=== PATIENT | male | born 1970 | race Caucasian/White ===

== ENCOUNTER 2019-04-28 17:05 | Inpatient (IN) ==
--- NOTE | 2019-04-28 17:20 | EKG Report ---
Test Performed on : 04/28/2019 5:06:36 PM Test Reason : CP/SOB Blood Pressure : / mmHG Vent. Rate : 103 BPM Atrial Rate : 103 BPM P-R Int : 130 ms QRS Dur : 086 ms QT Int : 334 ms P-R-T Axes : 067 -45 078 degrees QTc Int : 437 ms Sinus tachycardia. Low voltage QRS Left anterior fascicular block Septal infarct (cited on or before 21-JUL-2007) Abnormal ECG When compared with ECG of 21-JUL-2007 21:56, Left anterior fascicular block is now present Nonspecific T wave abnormality no longer evident in Lateral leads Unconfirmed Result
--- NOTE | 2019-04-28 17:32 | Diag Imaging Result Doc PS360 ---
EXAM: CHEST-1 VIEW 04/28/2019 HISTORY: POSSIBLE SEPSIS TECHNIQUE: AP portable upright chest at 1725 COMMENT: Considering differences in technique there has been no significant change since 06/12/2010. There is a prominent epicardial fat pad on the left. IMPRESSION: No evidence of acute disease. Electronically signed by Librado Snell 04/28/2019 5:30 PM
--- NOTE | 2019-04-28 18:06 | PROVIDER DOCUMENTATION ---
HPI-Respiratory General - General Chief Complaint: SEPSIS ALERT - D Stated Complaint: CP,SOB,EDEMA,COUGHING Time Seen by Provider: 04/28/19 17:41 Allergies/Adverse Reactions: Patient Allergies Allergy/AdvReac Type Severity Reaction Status Date / Time Penicillins Allergy Unknown Verified 04/28/19 17:57 Home Medications: Home Medication List Medication Instructions Recorded Confirmed Last Taken Type ATORVAstatin [Lipitor] 40 mg PO DAILY 10/09/14 04/28/19 10/08/14 History Lisinopril/Hydrochlorothiazide 1 tab PO DAILY 10/09/14 04/28/19 10/08/14 History [Lisinopril-Hctz 20-25 mg Tab] Omeprazole [Prilosec] 40 mg PO DAILY 10/09/14 04/28/19 10/08/14 History Furosemide 1 tab PO DAILY 04/28/19 04/28/19 Unknown History Meloxicam 1 tab PO BID 04/28/19 04/28/19 Unknown History Potassium Chloride 1 tab PO DAILY 04/28/19 04/28/19 Unknown History - History of Present Illness-Resp Nature of Presenting Problem: PATIENT REPORTS SOB WITH PRODUCTIVE COUGH X2 WEEKS. ALSO C/O STERNAL CHEST PAIN X1 WEEK , PATIENT WITH HISTORY OF COPD AND SMOKER, Quality of Pain: reports: sharp Severity in ED: reports: moderate Onset/Duration: reports: gradual Timing: reports: still present Exposure: reports: smoke exposure Cough Quality/Degree: reports: moderate, productive cough Episode Frequency: chronic episodes Current Respiratory Medication Therapy: Initiated A/A nebulizer Modifying Factors: improves with: exertion, coughing Associated Symptoms: reports: cough, hurts to breathe, short of breath Similar Symptoms Previously?: Yes Review of Systems - Adult - REVIEW OF SYSTEMS - ADULT Constitutional: reports: ramsey. denies: fever Eyes: reports: no symptoms reported Ears, Nose, Mouth & Throat: reports: no symptoms reported Cardiovascular: reports: see HPI Respiratory: reports: see HPI, cough, dyspnea on exertion, shortness of breath Gastrointestinal: reports: no symptoms reported Genitourinary: reports: no symptoms reported Musculoskeletal: reports: no symptoms reported Integumentary: reports: no symptoms reported Neurological: reports: no symptoms reported Psychiatric: reports: no symptoms reported Endocrine: reports: no symptoms reported Hematologic/Lymphatic: reports: no symptoms reported Allergic/Immunologic: reports: no symptoms reported Past History - Adult - PAST MEDICAL HISTORY-ADULT Review of Records: reports: Nursing Assessment Review, Medications Reviewed, Social history reviewed & non-contributory. Major Childhood Illnesses: reports: denies history Cardiovascular: reports: HTN Respiratory: reports: denies history Gastrointestinal: reports: denies history Obstetrical/Gynecological: reports: denies history Genitourinary: reports: denies history Musculoskeletal: reports: denies history Neurological: reports: denies history Endocrine/Immune: reports: denies history Other Conditions: reports: denies history - FAMILY HISTORY Family History: reviewed, not pertinent Physical Exam-General - PHYSICAL EXAM-ADULT Initial Vital Signs Reviewed: Yes - CONSTITUTIONAL General Appearance: alert, no apparent distress - EYES Eyes: PERRL/EOMI, pink conjunctivae - HEAD, EARS, NOSE, MOUTH & THROAT HENMT: normocephalic/atraumatic, moist mucous membranes - NECK Neck: non-tender, supple - RESPIRATORY Respiratory: decreased breath sounds, rhonchi - CARDIOVASCULAR Cardiovascular: regular rate, rhythm - GASTROINTESTINAL (ABDOMEN) Abdominal Exam: non tender, soft - LYMPHATIC Lymphatic: no adenopathy - MUSCULOSKELETAL Back Exam: no CVA tenderness, no vertebral tenderness Extremity: pedal edema, swelling - SKIN Integumentary: normal color, warm/dry - NEUROLOGIC Neurologic: grossly normal, no motor/sensory deficits Progress - PLAN OF CARE/RESULTS Progress/Plan/Lab Results: Vital Signs - 8 hr 04/28/19 17:06 04/28/19 17:21 04/28/19 17:23 Temperature 99.3 F Pulse Rate 102 H 93 H Respiratory Rate 24 18 Blood Pressure 128/75 129/74 O2 Sat by Pulse Oximetry 80 L 84 L 92 L 04/28/19 17:30 04/28/19 17:48 04/28/19 18:00 Temperature Pulse Rate 85 93 H 89 Respiratory Rate 16 19 15 Blood Pressure 147/74 O2 Sat by Pulse Oximetry 94 L 91 L 92 L 04/28/19 18:01 Temperature Pulse Rate 88 Respiratory Rate 23 Blood Pressure 140/92 O2 Sat by Pulse Oximetry 88 L Laboratory Results - last 24 hr 04/28/19 04/28/19 04/28/19 17:40 17:40 17:40 WBC 8.15 RBC 4.26 L Hgb 13.7 L Hct 42.2 MCV 99.1 H MCH 32.2 H MCHC 32.5 L RDW Std Deviation 13.6 Plt Count 178 MPV 9.7 Immature Gran % (Auto) 0.2 Neut % (Auto) 67.0 Lymph % (Auto) 24.9 Alpine % (Auto) 5.4 Eos % (Auto) 2.3 Baso % (Auto) 0.2 Immature Gran # (Auto) 0.02 Neut # (Auto) 5.45 Lymph # (Auto) 2.03 Alpine # (Auto) 0.44 Eos # (Auto) 0.19 Baso # (Auto) 0.02 PT INR PTT (Actin FS) Specimen Type Sample Site pH pCO2 pO2 HCO3 Base Excess Oxyhemoglobin ABG O2 Sat (Calculated) ABG O2 Saturation ABG Carboxyhemoglobin ABG Methemoglobin Nadeem Test A-a O2 Difference Total Hemoglobin Lactate Liter Flow Blood Gas Modality FiO2 % Sodium 145 Potassium 4.5 Chloride 101 Carbon Dioxide 35 Anion Gap 9 BUN 21 Creatinine 1.1 Estimated GFR/1.73 m2 > 60 BUN/Creatinine Ratio 19 Glucose 163 H Calculated Osmolality 295 Calcium 7.9 L Total Bilirubin 0.16 L AST 14 ALT 14 Alkaline Phosphatase 103 Creatine Kinase 77 Troponin T Total Protein 6.2 L Albumin 3.8 Globulin 2.4 Albumin/Globulin Ratio 1.6 Plasma Lactate 1.9 04/28/19 04/28/19 04/28/19 17:40 17:40 18:25 WBC RBC Hgb Hct MCV MCH MCHC RDW Std Deviation Plt Count MPV Immature Gran % (Auto) Neut % (Auto) Lymph % (Auto) Alpine % (Auto) Eos % (Auto) Baso % (Auto) Immature Gran # (Auto) Neut # (Auto) Lymph # (Auto) Alpine # (Auto) Eos # (Auto) Baso # (Auto) PT 13.1 INR 0.98 PTT (Actin FS) 26.5 Specimen Type ARTERIAL Sample Site R BRACHIAL pH 7.37 pCO2 73 H* pO2 66 HCO3 35.0 H Base Excess 13.2 H Oxyhemoglobin 88.7 L* ABG O2 Sat (Calculated) 17.8 ABG O2 Saturation 95.0 ABG Carboxyhemoglobin 5.60 H* ABG Methemoglobin 1.0 Nadeem Test NO A-a O2 Difference 99.0 Total Hemoglobin 14.3 Lactate 1.00 Liter Flow 4.0 Blood Gas Modality CANNULA FiO2 % 36.0 Sodium Potassium Chloride Carbon Dioxide Anion Gap BUN Creatinine Estimated GFR/1.73 m2 BUN/Creatinine Ratio Glucose Calculated Osmolality Calcium Total Bilirubin AST ALT Alkaline Phosphatase Creatine Kinase Troponin T < 0.010 Total Protein Albumin Globulin Albumin/Globulin Ratio Plasma Lactate Orders Category Date Time Status Cardiac Monitoring DIRECTED Care 04/28/19 17:17 Active IV Insertion ORDERED Care 04/28/19 17:17 Active Notify MD of + Sepsis Screen NOW Care 04/28/19 17:17 Active Notify Physician As Ordered Care 04/28/19 17:17 Active CHEST-1 VIEW [RAD] Stat Exams 04/28/19 17:17 Completed ABG [RESP] Routine Lab 04/28/19 18:25 Completed BLOOD CULTURE [BLDCUL] Stat Lab 04/28/19 17:47 Results BNP [PRO B-NATRIURETIC PEPTIDE] Stat Lab 04/28/19 18:56 Ordered CBC WITH DIFF [HEME] Stat Lab 04/28/19 17:40 Completed CK PROFILE [SP CHEM] Stat Lab 04/28/19 17:40 Completed COMPREHENSIVE METABOLIC PANEL [CHEM] Stat Lab 04/28/19 17:40 Completed LACTATE, PLASMA [CHEM] Lab 04/28/19 17:40 Completed LACTATE, PLASMA [CHEM] Lab 04/28/19 20:30 Uncollected LACTATE, PLASMA [CHEM] Lab 04/28/19 23:30 Uncollected PROTIME WITH INR [COAG] Stat Lab 04/28/19 17:40 Completed PTT [COAG] Stat Lab 04/28/19 17:40 Completed TROPONIN T Stat Lab 04/28/19 17:40 Completed URINALYSIS W/POSS RFLX CULT [URINALYSIS] Stat Lab 04/28/19 17:17 Uncollected Albuterol 2.5MG/Ipratrop 0.5MG [Duoneb (A & A)] Med 04/28/19 18:43 Discontinued 3 ml INH NOW ONE Budesonide [Pulmicort] Med 04/28/19 18:43 Discontinued 0.5 mg INH NOW ONE CefTRIAXONE [Rocephin] 1 gm Med 04/28/19 18:43 Active 0.9% Sodium Chloride Inj [Ns] 50 ml IV NOW Furosemide [Lasix] Med 04/28/19 18:42 Discontinued 80 mg IV NOW ONE Methylprednisolone Sod Succ [Solu-Medrol] Med 04/28/19 18:44 Discontinued 125 mg IV NOW ONE Aerosol Treatments Routine Oth 04/28/19 18:43 Active Aerosol Treatments Routine Oth 04/28/19 18:43 Active Aerosol Treatments Stat Oth 04/28/19 18:43 Active Aerosol Treatments Stat Oth 04/28/19 18:43 Active Oxygen Device Stat Oth 04/28/19 17:17 Completed EKG [EKG] Stat Ther 04/28/19 17:17 Draft Result Diagrams: 04/28/19 17:40 04/28/19 17:40 - CONSULTS/PCP/HOSPITALIST Notification #1 *Consult/PCP/Hospitalist*: D/w Dr Haynes Time Discussed: 20:36 Consult Disposition: Will see in ED, Admit - CHANGE OF SHIFT REPORT (ED Provider) 1 Report Given and Care Transferred to:: DR ROMERO Time of Transfer: 19:00 Items Pending: Labs, Other (CALL HOSPITALIST FOR ADMISSION) Departure - Departure Date of Disposition Decision: 04/28/19 Time of Disposition Decision: 20:39 DIAGNOSIS: Hypoxia, COPD with exacerbation Dyspnea Qualifiers: Dyspnea type: unspecified Qualified Code(s): R06.00 - Dyspnea, unspecified Disposition: ADMITTED INPATIENT 09 Certified Medical Emergency: Emergent Condition: Stable Referrals and Follow-Ups: Garfield Oden [Primary Care Provider] - - Critical Care Note This patient required my direct & personal management of CC.: No Attestation - Physician/ ENRICO Attestation Patient care was provided by Advanced Practice Provider:: No The physician spent face to face time with patient:: Yes Advanced Practice Provider documentation review:: Supervising physician onsite and consulted in the evaluation and care of this patient. The physician did have a face to face encounter with the patient.
[2019-04-28 18:10] LABS: BASO# 0.02 X1000 (0.0-0.2); BASO% 0.2 % (0.0-0.8); EOS# 0.19 X1000 (0.0-0.7); EOS% 2.3 % (0.0-10.0); HEMATOCRIT 42.2 % (42.0-52.0); HEMOGLOBIN 13.7 g/dL (14.0-18.0); IMM GRAN# 0.02 X1000 (0.0-0.04); IMM GRAN% 0.2 % (0.0-0.5); LYMPH# 2.03 X1000 (1.2-3.4); LYMPH% 24.9 % (20.5-51.1); MCH 32.2 PG (27-31); MCHC 32.5 g/dL (33-37); MCV 99.1 FL (81-99); MONO# 0.44 X1000 (0.11-0.59); MONO% 5.4 % (1.7-9.3); MPV 9.7 FL (7.4-10.4); NEUT# 5.45 X1000 (1.4-6.5); PLT 178 X1000 (130-400); RBC 4.26 XMIL (4.7-6.1); RDW 13.6 % (11.5-14.5); WBC 8.15 X1000 (4.8-10.8)
[2019-04-28 18:17] LABS: INR 0.98; PROTIME 13.1 Seconds (11.0-16.0); PTT 26.5 Seconds (22.3-41.8)
[2019-04-28 18:30] LABS: ALLEN TEST NO; BE 13.2 mmoll (-3.0-3.0); BLOOD TYPE ARTERIAL; O2(CT) 17.8 mL/dL (15.0-23.0); PO2(98.6) 66 mmHg (60-100); SAMPLE BLOOD; THB 14.3 g/dL (11.5-17.4); pH(98.6) 7.37 (7.35-7.45)
[2019-04-28 18:33] LABS: MODALITY CANNULA
[2019-04-28 18:34] LABS: O2HB 88.7 % (95.0-99.0); PCO2(98.6) 73 mmHg (35-45)
[2019-04-28] MEDS ORDERED: LASIX IV ONE (18:42)
[2019-04-28 18:43] LABS: AGAP 9; ALB/GLOB RATIO 1.6; ALBUMIN 3.8 g/dL (3.5-5.0); ALKALINE PHOSPHATASE 103 U/L (32-122); BUN 21 mg/dL (8-22); CALCIUM 7.9 mg/dL (8.8-10.2); CHLORIDE 101 mmol/L (98-107); CK PROFILE 77 U/L (24-204); COSMO 295; CREATININE 1.1 mg/dL (0.7-1.2); ESTIMATED GFR > 60; GLUCOSE 163 mg/dL (70-104); GOT 14 U/L (10-34); GPT 14 U/L (10-44); POTASSIUM 4.5 mmol/L (3.5-5.1); SODIUM 145 mmol/L (136-145); TCO2 35 mmol/L (25-35); TOTAL BILIRUBIN 0.16 mg/dL (0.20-1.00); TOTAL PROTEIN 6.2 g/dL (6.3-8.3)
[2019-04-28] MEDS ORDERED: ROCEPHIN 1 GM in NS 50 ML IV ONE (18:43)
[2019-04-28] MEDS ORDERED: PULMICORT INH ONE (18:43)
[2019-04-28] MEDS ORDERED: DUONEB (A & A) INH ONE (18:43)
[2019-04-28] MEDS ORDERED: SOLU-MEDROL IV ONE (18:44)
--- NOTE | 2019-04-28 22:07 | HISTORY AND PHYSICAL ---
CHIEF COMPLAINT: Shortness of breath and edema in legs. HISTORY OF PRESENT ILLNESS: This is a 49-year-old male who comes in with a known past medical history of hypertension, hyperlipidemia, obstructive sleep apnea for which he does not wear his BiPAP, obesity, and GERD. He sees Dr. Garfield Oden as his primary care provider. Apparently he has been taking Lasix because of increased edema in his lower extremities; however, for the past couple of weeks it has not been helping like it normally does. He became progressively short of breath with a cough, so he came in to the emergency room. His CO2 was elevated on his ABG at 73. He is a 34-tlou-aicj-year smoker. He states that he is not aware that he had COPD; however, this presentation looks like a COPD exacerbation. He was also given Lasix and had diuresed quite a large amount of urine prior to my interview. He also had some vague complaints of sternal chest pain, but he said that it was more of a tightness feeling and hurt worse with his cough. Chest x-ray was fairly unremarkable. No infiltrates, effusions or edema. At any rate, he will be admitted to the medical floor for further evaluation and treatment. PAST MEDICAL HISTORY: See HPI. PREVIOUS SURGICAL HISTORY: Tonsillectomy and an abdominal surgery as a child. 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 Lives with his . Has been a 7-nrtf-grj-day smoker foot 25 or so years. Denies alcohol or illicit drugs. FAMILY HISTORY: Mother had congestive heart failure and is . Father had bladder cancer and is also . ALLERGIES: Penicillin, causing an unknown reaction. HOME MEDICATIONS: Prilosec 40 mg p.o. daily, atorvastatin 40 mg p.o. daily, lisinopril/hydrochlorothiazide 20/25, 1 p.o. daily, meloxicam 1 tablet p.o. b.i.d., potassium chloride 10 mEq p.o. daily, Lasix 20 mg p.o. daily. REVIEW OF SYSTEMS: A 14-point review of systems was conducted with the patient. Pertinent positives listed above in the HPI. All other systems reviewed with the patient. He also complained of PND and orthopnea as well as generalized weakness and being very tired. He states that he falls asleep easily just after sitting or lying down. Other systems were reviewed and negative. PHYSICAL EXAMINATION: VITAL SIGNS: Temperature 99.3, pulse 93, respirations 23, blood pressure 140/92, oxygen saturation 92% on 4 L nasal cannula. GENERAL: A 49-year-old male lying in the ER stretcher. He is very pleasant, alert and oriented x3. is at bedside, very attentive. The patient is in no acute distress. HEENT: Head is atraumatic, normocephalic. Pupils equal, round, and reactive to light. Extraocular eye movement is intact. Sclerae are anicteric. Conjunctivae are pink. Oral mucosa is moist. NECK: Short and thick. No JVD. No hepatojugular reflux. No thyromegaly. CARDIAC: S1 and S2 appreciated. No murmurs, gallops or rubs. LUNGS: Decreased at bilateral bases, mild expiratory wheeze, bilateral upper lobes. No crepitus noted. Symmetric rise and fall with respirations. The patient is mildly tachypneic. ABDOMEN: Protuberant, soft, nondistended, nontender. Bowel sounds present in all 4 quadrants, normoactive. No pulsatile mass. No organomegaly. EXTREMITIES: There is 1 to 2+ pitting edema in the bilateral lower extremities mid-calf to foot, 2+ pedal pulses bilaterally. GENITOURINARY: The patient voids. No bladder distention. Otherwise deferred. NEUROLOGIC: Alert and oriented x3. Cranial nerves II-XII appear to be grossly intact. DIAGNOSTIC DATA: Chest x-ray is grossly normal. LABORATORY DATA: WBCs 8.15, hemoglobin 13.7, hematocrit 42.2, platelet count 178. ABG: pH of 7.37, pCO2 of 73, pO2 of 66, bicarb of 35. Sodium 135, potassium 4.5, chloride 101, carbon dioxide 35, BUN 21, creatinine 1.1, glucose 163. ASSESSMENT/PLAN: 1. Chronic obstructive pulmonary disease with exacerbation. Will start DuoNeb treatments and Rocephin IV. He received Solu-Medrol in the emergency room. Will give 60 mg every 8 hours, 3 doses and then discontinue. Blood cultures have been drawn and are pending. 2. Hypercapnic respiratory failure secondary to number 1. 3. Obstructive sleep apnea. Does not use home BiPAP. BiPAP will be ordered to help blow off the patient's CO2. He was told that his lethargy is likely related to CO2 narcosis and was instructed that it would be helpful if he stopped smoking and did start wearing his BiPAP. He stated that he has Chantix, he just has not started it. 4. Continued tobacco abuse. See above. 5. Hypertension and hyperlipidemia. Continue home medications. 6. Lower extremity edema. Cannot rule out new onset congestive heart failure. As noted above, the patient has not been wearing his BiPAP for sleep apnea, which over time can increase risk of congestive heart failure. Will order echocardiogram tomorrow morning. 7. Further recommendations per patient's clinical course. Dictated by CONSUELO Heredia for Chaitanya Haynes MD cc: CONSUELO Heredia MD Chad McElroy, MD Independent exam and assessment performed by me at bedside with LOCK UP WORK[employer]. Answered Pt's questions. I am concerned that pt may have underlying CHF likely diastolic vs. R sided CHF from underlying MARINA. Echo will be revealing. Continue with Lasix and LV and LABA. Will recommend lower doses of steroids 40mg q12 due increased likelihood of fluid retention without any meaningful benefit. MTDD
[2019-04-28] MEDS: DUONEB (A & A) INH SCH (22:55)
[2019-04-28 23:08] LABS: HEMOGLOBIN A1C 5.8 % (4.8-6.0)
[2019-04-29] MEDS: LOVENOX SUBQ SCH ×2 (00:21→21:48)
[2019-04-29] MEDS: SOLU-MEDROL IV SCH ×3 (01:00→19:04)
[2019-04-29 02:16] LABS: ALLEN TEST YES; BE 14.8 mmoll (-3.0-3.0); BLOOD TYPE ARTERIAL; HCO3-(ACT) 36.4 mmoll (20.0-26.0); METHB 1.5 % (0.0-1.5); O2(CT) 20.2 mL/dL (15.0-23.0); O2HB 94.9 % (95.0-99.0); PO2(98.6) 145 mmHg (60-100); SAMPLE BLOOD; SAO2 99.3 % (95.0-100.0); pH(98.6) 7.47 (7.35-7.45)
[2019-04-29 02:19] LABS: MODALITY BI PAP; PCO2(98.6) 57 mmHg (35-45)
[2019-04-29] MEDS: TYLENOL PO PRN (03:38)
[2019-04-29] MEDS: DUONEB (A & A) INH SCH ×4 (03:53→23:01)
[2019-04-29] MEDS: PRILOSEC PO SCH (06:40)
[2019-04-29] MEDS: LASIX IV SCH (08:32)
[2019-04-29] MEDS: LIPITOR PO SCH (08:32)
[2019-04-29] MEDS: PRINZIDE 10/12.5MG PO SCH (08:32)
[2019-04-29] MEDS: NORCO-10 PO SCH ×2 (11:08→21:41)
--- NOTE | 2019-04-29 11:43 | PROGRESS NOTE ---
DATE: 04/29/2019 SUBJECTIVE: The patient reports breathing better. Denies any fever or chills. He requests a nicotine patch. OBJECTIVE: Vital Signs: Temperature 97.9 degrees, heart rate 106, respiratory rate 14, blood pressure 121/77, O2 saturation 94% on 6 L nasal cannula. General: This is a 49-year-old male, lying in bed in no acute distress. HEENT: Head is normocephalic, atraumatic. Neck: No JVD noted. No carotid bruits. No lymphadenopathy. No thyromegaly. Cardiovascular: S1, S2 heard. No murmurs, gallops, or rubs. Regular rate and rhythm. Respiratory: Decreased breath sounds globally with mild expiratory wheezing in both pulmonary bases. The patient is not using any accessory muscles or having work of breathing. Abdomen: Soft, nontender to palpation. Bowel sounds present. No organomegaly. Extremities: No clubbing or cyanosis, but there is 2+ pitting edema in both lower extremities. Neurological: The patient is alert and oriented x3. Moves all 4 extremities. LABORATORY DATA: There are no labs from today, except the ABG that shows pH 7.47 with pCO2 of 57, PO2 of 145. ASSESSMENT AND PLAN: 1. Acute hypercapnic respiratory failure secondary to chronic obstructive pulmonary disease exacerbation. Will continue with DuoNebs every 4 hours, Rocephin, and Solu-Medrol that he is going to receive 6 mg every 8 hours, 3 doses. 2. Obstructive sleep apnea. The patient is not using any bilevel positive airway pressure. The carbon dioxide is elevated. The patient has used bilevel positive airway pressure last night, and there has been an improvement from 72 to 57. Will continue with the same management. 3. Tobacco abuse. The patient requests nicotine patch. The patient reports that he wants to quit smoking. 4. Hypertension/hyperlipidemia. Will continue home medications. 5. Lower extremity edema. Will see if this patient has new-onset congestive heart failure. Will check echocardiogram. 6. Disposition. In order to have better visualization of the lung anatomy, will do a CT scan of the chest, and will continue to monitor this patient closely. cc: Cruz Donovan MD
[2019-04-29] MEDS: NICODERM PATCH TD SCH (12:00)
[2019-04-29] MEDS ORDERED: ROCEPHIN 1 GM in NS 50 ML IV SCH (18:00)
[2019-04-30] MEDS: DUONEB (A & A) INH SCH ×6 (04:02→23:35)
[2019-04-30 04:45] LABS: ALLEN TEST YES; BE 3.9 mmoll (-3.0-3.0); BLOOD TYPE ARTERIAL; HCO3-(ACT) 27.7 mmoll (20.0-26.0); METHB 1.1 % (0.0-1.5); O2(CT) 17.6 mL/dL (15.0-23.0); PO2(98.6) 60 mmHg (60-100); SAMPLE BLOOD; THB 14.2 g/dL (11.5-17.4)
[2019-04-30 04:48] LABS: MODALITY CANNULA; O2HB 88.4 % (95.0-99.0); PCO2(98.6) 66 mmHg (35-45)
[2019-04-30] MEDS ORDERED: NS 500 ML IV ONE ×2 (05:41→10:55)
[2019-04-30] MEDS ORDERED: NS 1,000 ML IV ONE ×2 (05:41→10:27)
[2019-04-30] MEDS: ZOSYN 3.375 GM in NS 50 ML IV SCH ×3 (06:30→18:04)
[2019-04-30] MEDS: PRILOSEC PO SCH (06:30)
[2019-04-30 06:53] LABS: BASO# 0.01 X1000 (0.0-0.2); BASO% 0.1 % (0.0-0.8); EOS# 0.01 X1000 (0.0-0.7); EOS% 0.1 % (0.0-10.0); HEMATOCRIT 42.2 % (42.0-52.0); HEMOGLOBIN 13.1 g/dL (14.0-18.0); IMM GRAN# 0.13 X1000 (0.0-0.04); IMM GRAN% 0.7 % (0.0-0.5); LYMPH# 1.11 X1000 (1.2-3.4); MCH 31.2 PG (27-31); MCV 100.5 FL (81-99); MONO# 1.19 X1000 (0.11-0.59); MONO% 6.5 % (1.7-9.3); MPV 9.8 FL (7.4-10.4); NEUT# 15.93 X1000 (1.4-6.5); NEUT% 86.6 % (42.2-75.2); PLT 214 X1000 (130-400); RDW 14.1 % (11.5-14.5); WBC 18.38 X1000 (4.8-10.8)
[2019-04-30 07:26] LABS: LYMPHS 8 % (21-51); MONO 5 % (1-9); SEGS 87 % (42-75)
[2019-04-30 07:27] LABS: ANISOCYTOSIS 2+
[2019-04-30 07:49] LABS: CALCIUM 8.9 mg/dL (8.8-10.2); CREATININE 1.5 mg/dL (0.7-1.2); POTASSIUM 4.5 mmol/L (3.5-5.1)
--- NOTE | 2019-04-30 08:13 | Diag Imaging Result Doc PS360 ---
CT THORAX W/CONTRAST - 04/30/2019 INDICATION: pneumonia COMPARISON: Chest x-ray 04/28/2019 FINDINGS: There is mild COPD. There are linear opacities in both lung bases compatible with atelectasis. No suspicious infiltrates. No pneumothorax or pleural effusion. No adenopathy. Heart and great vessels are normal. Upper abdominal images are normal. There are moderate degenerative changes of the spine. No acute or suspicious bony lesion. IMPRESSION: COPD. Bilateral linear atelectasis. No acute disease. This exam was performed using automated exposure control, adjustment of mA or kV according to patient size, and/or use of iterative reconstruction technique Electronically signed by Mitch Griffith 04/30/2019 8:11 AM
[2019-04-30 09:15] LABS: URINE SOURCE CLEAN CATCH
[2019-04-30] MEDS: LIPITOR PO SCH (09:20)
[2019-04-30] MEDS: LASIX IV SCH (09:20)
[2019-04-30] MEDS: PRINZIDE 10/12.5MG PO SCH (09:20)
[2019-04-30 09:21] LABS: BILIRUBIN URINE NEGATIVE (NEGATIVE); BLOOD URINE NEGATIVE (NEGATIVE); COLOR YELLOW; GLUCOSE URINE NEGATIVE (NEGATIVE); KETONE URINE NEGATIVE (NEGATIVE); LEUKOCYTES URINE NEGATIVE (NEGATIVE); NITRITE URINE NEGATIVE (NEGATIVE); PROTEIN URINE TRACE mg/dL (NEGATIVE); SP GRAVITY URINE 1.038; TURBIDITY URINE CLEAR (CLEAR); UR EPITHELIAL CELLS <10 /HPF (<10); URINE BACTERIA NEGATIVE /HPF; URINE RBC <10 /HPF (<10); URINE WBC <10 /HPF (<10); UROBILINOGEN URINE NORMAL (NORMAL)
[2019-04-30] MEDS: NICODERM PATCH TD SCH (09:21)
--- NOTE | 2019-04-30 09:23 | ECHO REPORT ---
ORDER DATE: 04/29/2019 PROCEDURE: Echocardiography. SUMMARY: 1. Very difficult study due to very limited acoustic window quality. Intravenous echo contrast agent Optison was utilized to enhance endocardial definition. 2. Aortic valve is not well imaged. It appears to open adequately on two-dimensional images. Peak gradient across aortic valve is 15 mmHg. Mitral and tricuspid valves are without evidence of structural abnormality with trace tricuspid regurgitation. Pulmonic valve not seen. The aortic root is normal in size. 3. Normal left ventricular chamber size with mild concentric left hypertrophy is suggested. The estimated left ventricular ejection fraction appears to be at least 65%. No regional wall motion abnormality can be appreciated. Left atrium, right atrium, and right ventricle are grossly normal in size with grossly preserved right ventricular systolic function. 4. No pericardial effusion. 5. Inferior vena cava not well demonstrated. cc: MD Jake Renae CRNP
[2019-04-30] MEDS: NORCO-10 PO SCH ×2 (09:36→21:17)
[2019-04-30] MEDS: PULMICORT INH SCH ×2 (09:44→19:50)
[2019-04-30] MEDS ORDERED: SOLU-MEDROL IV SCH (10:00)
[2019-04-30] MEDS ORDERED: NS 1,000 ML IV SCH (10:30)
[2019-04-30] MEDS: NORVASC PO SCH ×2 (11:10→21:17)
--- NOTE | 2019-04-30 12:43 | PROGRESS NOTE ---
DATE: 04/30/2019 SUBJECTIVE: Patient reports breathing better. Denies any fever or chills. OBJECTIVE: Vital Signs: Temperature 98.4 degrees, heart rate 104, respiratory 17, blood pressure 142/66, O2 saturation 100% on 3 L nasal cannula. General: This is a 49-year-old male lying in bed in no acute distress. Cardiovascular: S1-S2 heard. No murmurs, gallops, or rubs. Regular rate and rhythm. Respiratory: Decreased breath sounds globally. Minimal mild expiratory wheezing in both pulmonary bases. Patient not using any accessory muscles or having work of breathing. Abdomen: Soft, nontender to palpation. Bowel sounds present. No organomegaly. Extremities: 2+ pitting edema in both lower extremities. Definitely getting better in comparing with yesterday. Neurological: Patient is alert and oriented x3. Moves 4 extremities. LABORATORY DATA: White cell count 18.38, hemoglobin 13.1, hematocrit 42.2, platelets 214,000. ABG shows pH 7.30, with pCO2 66, PO2 60. Lactate 4.3. BMP reveals creatinine 1.5. ASSESSMENT AND PLAN: 1. Acute hypercapnic respiratory failure secondary to chronic obstructive pulmonary disease exacerbation. We have checked a CT of the chest with contrast and we did not find any lesions or any infiltrates. We are going to change the frequency of DuoNeb from q.6 hours to q.4 hours. Will continue Rocephin. [place] [address]. Will stop Solu-Medrol as well. 2. Obstructive sleep apnea. The patient is supposed to use BiPAP, but the patient is not sure if the device is working for him. In any case, he is on BiPAP here and the CO2 is still elevated. Will continue using BiPAP at nighttime all night long and at bedtime as much as the patient can tolerate. 3. Acute kidney injury. We are going to stop lisinopril. Will provide IV fluids. Will stop Lasix and will check BMP daily. 4. Hypertension. Will continue home medications. Blood pressure is under control. 5. Hyperlipidemia. Will continue with statins. 6. Lower extremity edema, most likely secondary to chronic venous insufficiency. The echocardiogram did not show any gross abnormality. 7. Disposition. Will continue to monitor this patient closely. cc: MD JENS Marina
[2019-04-30] MEDS: KLOR-CON PO SCH ×2 (12:56)
[2019-05-01] MEDS: ZOSYN 3.375 GM in NS 50 ML IV SCH ×4 (00:01→21:07)
[2019-05-01] MEDS: DUONEB (A & A) INH SCH ×5 (03:35→23:06)
[2019-05-01 04:45] LABS: ALLEN TEST YES; BE 4.8 mmoll (-3.0-3.0); BLOOD TYPE ARTERIAL; HCO3-(ACT) 28.6 mmoll (20.0-26.0); METHB 1.3 % (0.0-1.5); O2(CT) 19.5 mL/dL (15.0-23.0); O2HB 96.4 % (95.0-99.0); PO2(98.6) 155 mmHg (60-100); SAMPLE BLOOD; SAO2 99.4 % (95.0-100.0); THB 14.2 g/dL (11.5-17.4); pH(98.6) 7.27 (7.35-7.45)
[2019-05-01 04:46] LABS: MODALITY BI PAP
[2019-05-01 04:48] LABS: PCO2(98.6) 75 mmHg (35-45)
[2019-05-01] MEDS: PRILOSEC PO SCH (06:15)
[2019-05-01] MEDS: PULMICORT INH SCH ×2 (07:36→23:06)
[2019-05-01 08:00] LABS: EOS# 0.02 X1000 (0.0-0.7); EOS% 0.1 % (0.0-10.0); HEMOGLOBIN 12.7 g/dL (14.0-18.0); IMM GRAN% 0.7 % (0.0-0.5); LYMPH# 2.33 X1000 (1.2-3.4); MCH 31.1 PG (27-31); MCHC 30.2 g/dL (33-37); MCV 102.7 FL (81-99); MONO# 1.02 X1000 (0.11-0.59); MPV 9.8 FL (7.4-10.4); NEUT# 11.09 X1000 (1.4-6.5); NEUT% 76.2 % (42.2-75.2); PLT 201 X1000 (130-400); RBC 4.09 XMIL (4.7-6.1); RDW 14.6 % (11.5-14.5); WBC 14.56 X1000 (4.8-10.8)
[2019-05-01 08:32] LABS: CALCIUM 8.1 mg/dL (8.8-10.2); CREATININE 1.3 mg/dL (0.7-1.2); POTASSIUM 4.1 mmol/L (3.5-5.1)
[2019-05-01] MEDS: NORVASC PO SCH ×2 (10:15→21:07)
[2019-05-01] MEDS: NICODERM PATCH TD SCH (10:15)
[2019-05-01] MEDS: LIPITOR PO SCH (10:15)
[2019-05-01] MEDS: KLOR-CON PO SCH (10:16)
[2019-05-01] MEDS: NORCO-10 PO SCH ×2 (10:16→21:07)
--- NOTE | 2019-05-01 12:02 | PROGRESS NOTE ---
DATE: 05/01/2019 SUBJECTIVE: The patient reports breathing better. According to nursing staff, the patient has been using BiPAP at night, all night long. OBJECTIVE: Vital Signs: Temperature 98.3 degrees, heart rate 87, respiratory rate 20, blood pressure 118/70, O2 saturation 97% on 4 L nasal cannula. General: This is a chronically ill- appearing, 49-year-old male, lying in bed, in no acute distress. Cardiovascular: S1, S2 heard. No murmurs, gallops, or rubs. Regular rate and rhythm. Respiratory: Decreased breath sounds globally. Minimal expiratory wheezing in both pulmonary bases. The patient not using any accessory muscles or having work of breathing. Abdomen: Soft, nontender to palpation. Bowel sounds present. No organomegaly. Extremities: There is 2+ pitting edema both lower extremities. Neurologic: The patient is alert and oriented x3. Moves all 4 extremities. LABORATORY DATA: White cell count 14.56, hemoglobin 12.7, hematocrit 42.0, platelets 201,000. ABG shows this a pH of 7.27, with pCO2 75, pO2 155 on BiPAP with FiO2 of 35%. Kidney function is 1.3. ASSESSMENT AND PLAN: 1. Acute hypercapnic respiratory failure secondary to chronic obstructive pulmonary disease exacerbation. Although clinically the patient feels okay his ABG still shows CO2 retention with respiratory acidosis. At this time, we will continue with DuoNeb every 4 hours. The patient has been recommended to use BiPAP not only at nighttime but also daytime, with breaks for meals. We will continue with Rocephin. 2. Obstructive sleep apnea. The patient is on BiPAP. 3. Acute kidney injury. Getting better. We will continue to monitor BMP. 4. Hypertension. Blood pressure is under control. We will continue with the same management. 5. Hyperlipidemia. We will continue with statins. 6. Lower extremity edema, most likely secondary to chronic venous insufficiency. 7. Echocardiogram as we mentioned before, did not show any gross abnormality. We will continue to monitor. 8. Disposition. If ABG shows better gas oxygenation then we can discharge this patient home tomorrow. cc: Cruz Donovan MD
--- NOTE | 2019-05-01 22:14 | EKG Report ---
Test Performed on : 05/01/2019 7:15:26 PM Test Reason : chest pain Blood Pressure : / mmHG Vent. Rate : 087 BPM Atrial Rate : 087 BPM P-R Int : 114 ms QRS Dur : 102 ms QT Int : 340 ms P-R-T Axes : 069 -38 061 degrees QTc Int : 409 ms Normal sinus rhythm. Left axis deviation Low voltage QRS Abnormal ECG When compared with ECG of 28-APR-2019 17:06, (Unconfirmed) No significant change was found Unconfirmed Result
[2019-05-01] MEDS: LOVENOX SUBQ SCH ×2 (22:43)
[2019-05-02] MEDS: DUONEB (A & A) INH SCH ×7 (00:11→23:53)
[2019-05-02 03:54] LABS: ALLEN TEST YES; BE 7.8 mmoll (-3.0-3.0); BLOOD TYPE ARTERIAL; HCO3-(ACT) 30.7 mmoll (20.0-26.0); O2(CT) 16.5 mL/dL (15.0-23.0); SAMPLE BLOOD; SAO2 87.5 % (95.0-100.0); THB 13.8 g/dL (11.5-17.4); pH(98.6) 7.36 (7.35-7.45)
[2019-05-02] MEDS: ZOSYN 3.375 GM in NS 50 ML IV SCH ×4 (04:00→20:58)
[2019-05-02 04:02] LABS: PCO2(98.6) 63 mmHg (35-45); PO2(98.6) 49 mmHg (60-100)
[2019-05-02] MEDS: PRILOSEC PO SCH (06:42)
[2019-05-02 07:41] LABS: BASO# 0.02 X1000 (0.0-0.2); BASO% 0.2 % (0.0-0.8); EOS# 0.23 X1000 (0.0-0.7); EOS% 2.3 % (0.0-10.0); HEMATOCRIT 41.4 % (42.0-52.0); HEMOGLOBIN 12.3 g/dL (14.0-18.0); IMM GRAN# 0.06 X1000 (0.0-0.04); IMM GRAN% 0.6 % (0.0-0.5); LYMPH# 3.42 X1000 (1.2-3.4); LYMPH% 34.4 % (20.5-51.1); MCH 30.6 PG (27-31); MCHC 29.7 g/dL (33-37); MONO# 0.89 X1000 (0.11-0.59); MPV 9.7 FL (7.4-10.4); NEUT# 5.31 X1000 (1.4-6.5); NEUT% 53.5 % (42.2-75.2); PLT 170 X1000 (130-400); RBC 4.02 XMIL (4.7-6.1); RDW 14.6 % (11.5-14.5); WBC 9.93 X1000 (4.8-10.8)
[2019-05-02 08:02] LABS: CALCIUM 8.4 mg/dL (8.8-10.2); CREATININE 1.3 mg/dL (0.7-1.2); POTASSIUM 4.4 mmol/L (3.5-5.1)
[2019-05-02] MEDS ORDERED: LASIX IV ONE (08:18)
[2019-05-02] MEDS: PULMICORT INH SCH ×2 (08:30→19:52)
[2019-05-02] MEDS: NORVASC PO SCH ×2 (09:43→20:58)
[2019-05-02] MEDS: NICODERM PATCH TD SCH (09:43)
[2019-05-02] MEDS: NORCO-10 PO SCH ×2 (09:43→20:58)
[2019-05-02] MEDS: LIPITOR PO SCH (09:44)
[2019-05-02] MEDS: KLOR-CON PO SCH (09:44)
[2019-05-02] MEDS: TYLENOL PO PRN (16:30)
--- NOTE | 2019-05-02 16:30 | PROGRESS NOTE ---
DATE: 05/02/2019 SUBJECTIVE: The patient reports feeling much better. Apparently, there was a concern for some chest discomfort that happened overnight, but upon my examination, patient reports feeling okay. Troponins were checked last night and they were normal like at admission. OBJECTIVE: Vital Signs: Temperature 98.5 degrees, heart rate 89, respiratory 22, blood pressure 126/60, O2 saturation 88% on room air and 91% on 5 L nasal cannula. General Examination: This is a chronically ill-appearing, 49-year-old male, lying in bed, in no acute distress. Cardiovascular: S1, S2 heard. No murmurs, gallops, or rubs. Regular rate and rhythm. Respiratory: Decreased breath sounds globally with minimal expiratory wheezing noted in both pulmonary bases. Definitely better in comparing with previous days. The patient is not using any accessory muscles or having work of breathing. Abdomen: Soft, nontender to palpation. Bowel sounds present. No organomegaly. Extremities: There is 2+ pitting edema in both lower extremities. Neurological: Patient is alert and oriented x3. Moves four extremities. LABORATORY DATA: White cell count 9.93, hemoglobin 12.3, hematocrit 41.4, platelets 170,000. ABG shows pH 7.36 with pCO2 63, pO2 49. Creatinine 1.3. ASSESSMENT AND PLAN: 1. Acute hypercapnic and hypoxic respiratory failure secondary to chronic obstructive pulmonary disease exacerbation. At presentation this patient was admitted to the hospital for shortness of breath. There was history or longstanding smoking. The CT of the chest with contrast shows just signs of chronic obstructive pulmonary disease but no signs of pneumonia, so patient was continued with DuoNeb every four hours scheduled. The patient has been on intravenous steroids but we stopped it because the white cell count jumped up to 18,000. He was found out also to have a very elevated CO2 so we are trying BiPAP at night. The patient has arterial blood gas that shows a CO2 of 63, but with low oxygen, so initially was planning to discharge this patient but family wants to keep this patient in the hospital and have a pulmonary consult, so will do that and we will see what Pulmonary has to say. 2. Obstructive sleep apnea. Patient is on BiPAP at home. We will continue with that once he is discharged. 3. Acute kidney injury. Getting better. The patient has been on WILLIAM inhibitor and also hydrochlorothiazide. The patient has received contrast for the CT of the thorax, so at this point we will continue to monitor. The patient has received also intravenous fluids. 4. Lower extremity edema. We suspect some sort of right heart failure secondary to chronic obstructive pulmonary disease but the echocardiogram was grossly normal. I think he may have some chronic venous insufficiency. We will provide one dose of Lasix. 5. Disposition. At this point, we are going to check arterial blood gases tomorrow. We will check recommendations from Pulmonary. We will continue with current management. We will continue to monitor. cc: Cruz Donovan MD
[2019-05-02] MEDS: SYMBICORT 160/4.5 MICROGM INHALER INH SCH (20:14)
[2019-05-02] MEDS: LOVENOX SUBQ SCH (23:37)
[2019-05-03] MEDS: DUONEB (A & A) INH SCH ×6 (03:45→22:32)
[2019-05-03] MEDS: ZOSYN 3.375 GM in NS 50 ML IV SCH ×3 (03:54→16:30)
--- NOTE | 2019-05-03 05:47 | PULMONOLOGY CONSULTATION ---
DATE: 05/02/2019 REQUESTING CLINICIAN: Dr. Downey. REASON FOR CONSULTATION: COPD. HISTORY OF PRESENT ILLNESS: Mr. Oden is a 49-year-old white male with a greater than 50-pack- year history for tobacco (continues to smoke 1 pack per day) who was admitted to the hospital 04/28/2019 with increasing cough, increasing shortness of breath, increasing lower extremity edema. The patient reports that he has been checking his oxygen periodically at home with a pulse oximeter and it will run in the 70 range. The patient has gained approximately 90 pounds since leaving high school. The patient was diagnosed with sleep apnea greater than 5 years ago but does not wear his CPAP or BiPAP device. He has had progressive lower extremity swelling which has responded to Lasix over the last 2 years but not over the last several months. The patient's blood gas on presentation to the emergency room on 4 L per nasal cannula revealed a pH of 7.37, pCO2 of 73, PO2 of 66 with a carboxyhemoglobin of 5.6. The patient has been ambulating in the room and in the hallway but his room air oxygen today is 49 with a CO2 of 63. PAST MEDICAL HISTORY: 1. Chronic obstructive pulmonary disease with ongoing tobacco use. 2. Morbid obesity. 3. Obstructive sleep apnea with noncompliance with CPAP device. 4. Status post tonsillectomy. 5. History of gastric repair as a child. SOCIAL HISTORY: No alcohol use. 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 Ongoing tobacco use as per above. FAMILY HISTORY: Positive for bladder cancer and congestive heart failure. REVIEW OF SYSTEMS: As noted in the HPI. PHYSICAL EXAMINATION: Reveals an obese white male with a BMI of 39 resting comfortably on the side of the bed. BP 121/60, heart rate 89, respiratory rate 20, oxygen saturation 93% on 4 L per nasal cannula.HEENT: Pupils are equal and reactive. Oropharynx appears clear. Neck: Supple but thick. Chest: Reveals distant breath sounds bilaterally. Cardiac: Regular rate, normal S1, normal S2. Abdomen: Obese and soft. Extremities: Reveal trace to 1+ peripheral edema. LABORATORIES: Arterial blood gas as per HPI. White blood count 9.93, hemoglobin 12.3, platelet count 170,000. Sodium 139, potassium 4.4, chloride 99, bicarbonate 33, BUN 47, creatinine 1.3. CT scan of the thorax reveals mild scarring at the right base. Normal cardiac silhouette, mild emphysematous changes predominantly in upper lobes. Abdomen is obese with increased adiposity. IMPRESSION: A 49-year-old with 1. Chronic obstructive pulmonary disease, degree of obstruction not currently quantitated. 2. Acute hypoxemic respiratory failure. Chronic hypoxemic respiratory failure also suspected. 3. Chronic hypercapnic respiratory failure. 4. Nicotine addiction with ongoing tobacco use. 5. Morbid obesity with a body mass index of 39. 6. Obstructive sleep apnea with noncompliance to BiPAP/CPAP. 7. Acute cor pulmonale. RECOMMENDATIONS: 1. Arrange home oxygen therapy. 2. Arrange followup with sleep evaluation as soon as possible. 3. Smoking cessation was discussed at length. 4. Recommend 90 pound weight loss over the next 2 years. The patient realized this will be a difficult task to complete but if he is going to live long-term, he must do 3 things and that is 1 be reevaluated and treat sleep apnea, #2 discontinue tobacco, #3 lose weight. In addition, he will also have to wear oxygen to maintain saturation greater than 90%. 5. The patient can be followed up in my office. cc: Chris Mccabe MD
[2019-05-03] MEDS: PRILOSEC PO SCH (06:26)
[2019-05-03 06:50] LABS: MODALITY ROOM AIR
[2019-05-03] MEDS: PULMICORT INH SCH (07:45)
[2019-05-03] MEDS: SPIRIVA INH SCH (07:45)
[2019-05-03] MEDS: SYMBICORT 160/4.5 MICROGM INHALER INH SCH ×2 (07:47→19:23)
[2019-05-03] MEDS: NORVASC PO SCH ×2 (09:00→21:20)
[2019-05-03] MEDS: KLOR-CON PO SCH (09:00)
[2019-05-03] MEDS: LIPITOR PO SCH (09:01)
[2019-05-03] MEDS: NICODERM PATCH TD SCH (09:01)
[2019-05-03] MEDS: NORCO-10 PO SCH ×3 (09:01→21:20)
--- NOTE | 2019-05-03 18:45 | PROGRESS NOTE ---
DATE: 05/03/2019 SUBJECTIVE: Patient has no major complaints. OBJECTIVE: Vital Signs: Blood pressure is 130/77, heart rate 94, respiratory rate 18, temperature 98.6 degrees, 93% on 4 L. Cardiovascular: Regular rate and rhythm. Pulmonary: Diminished at the bases. No wheezing. GI: Soft, nontender, nondistended. Bowel sounds are positive. LABORATORY DATA: White count is 9, hemoglobin and hematocrit 12 and 41, platelets 170,000. PH 7.36, pCO2 63, PaO2 49. Creatinine 1.3. PROBLEM LIST: 1. Acute hypoxic, hypercapnic respiratory failure, due to chronic obstructive pulmonary disease and obesity, hypoventilation, obstructive sleep apnea. We will continue BiPAP which is being set up at home. Pulmonary was consulted and made recommendations. 2. Acute kidney injury. Does seem to be stable at least, or improving. Will continue to hold nephrotoxic drugs. DISPOSITION: We need to set up home oxygen. Apparently, he does not have that and we are in the process of setting up home oxygen. I think he could possibly be discharged in the next 1 to 2 days pending discharge. cc: Ariel Bear MD
--- NOTE | 2019-05-03 20:48 | PULMONOLOGY PROGRESS NOTE ---
DATE: 05/03/2019 SUBJECTIVE: Patient is awake and alert. Patient is sitting on the side of the bed. He did just return from the bathroom. He did not wear his oxygen. He has mild cyanosis of the lips, which resolves with replacement of oxygen. OBJECTIVE: The patient has been afebrile for the last 24 hours. Blood pressure 149/70, heart rate 102, respiratory rate 18, oxygen saturation 93%.HEENT: Pupils are equal and reactive. Oropharynx appears clear. Neck: Supple. Chest: Reveals prolonged expiratory phase. Cardiac: Distant heart sounds. Normal S1 and S2. Abdomen: Obese and soft. Extremities: Reveal 1+ peripheral edema. LABORATORIES: No new chemistries, arterial blood gas or CBC today. IMPRESSION: 49-year-old with 1. Chronic obstructive pulmonary disease. 2. Acute hypoxemic respiratory failure. 3. Chronic hypercapnic respiratory failure. 4. Nicotine addiction with ongoing tobacco use prior to admission. 5. Morbid obesity with a body mass index of 39. 6. Obstructive sleep apnea with noncompliance to previously prescribed BiPAP. 7. Acute cor pulmonale. RECOMMENDATION: 1. Arrange home oxygen therapy. 2. Arrange sleep evaluation as soon as possible after discharge. 3. Smoking cessation. 4. Weight loss. 5. Okay for discharge from a pulmonary standpoint. PLAN: We will be glad to see him in my office in 2 to 3 weeks. cc: Chris Mccabe MD
[2019-05-03] MEDS: LOVENOX SUBQ SCH (23:10)
[2019-05-04] MEDS: DUONEB (A & A) INH SCH ×3 (03:21→11:31)
[2019-05-04] MEDS: PRILOSEC PO SCH (06:25)
[2019-05-04 07:14] LABS: BASO# 0.02 X1000 (0.0-0.2); BASO% 0.2 % (0.0-0.8); EOS# 0.29 X1000 (0.0-0.7); EOS% 2.8 % (0.0-10.0); HEMATOCRIT 39.7 % (42.0-52.0); HEMOGLOBIN 12.3 g/dL (14.0-18.0); IMM GRAN# 0.05 X1000 (0.0-0.04); IMM GRAN% 0.5 % (0.0-0.5); LYMPH# 2.72 X1000 (1.2-3.4); LYMPH% 26.2 % (20.5-51.1); MCH 31.2 PG (27-31); MCV 100.8 FL (81-99); MONO# 0.82 X1000 (0.11-0.59); MONO% 7.9 % (1.7-9.3); MPV 9.7 FL (7.4-10.4); NEUT% 62.4 % (42.2-75.2); PLT 163 X1000 (130-400); RBC 3.94 XMIL (4.7-6.1); RDW 13.8 % (11.5-14.5)
[2019-05-04 07:40] LABS: AGAP 8; BUN 22 mg/dL (8-22); CALCIUM 8.2 mg/dL (8.8-10.2); CHLORIDE 105 mmol/L (98-107); COSMO 294; CREATININE 0.9 mg/dL (0.7-1.2); ESTIMATED GFR > 60; GLUCOSE 100 mg/dL (70-104); POTASSIUM 4.4 mmol/L (3.5-5.1); SODIUM 146 mmol/L (136-145); TCO2 33 mmol/L (25-35)
[2019-05-04 07:46] VITALS: BP 120/61
[2019-05-04] MEDS: SPIRIVA INH SCH (07:46)
[2019-05-04] MEDS: SYMBICORT 160/4.5 MICROGM INHALER INH SCH (07:46)
[2019-05-04] MEDS: LIPITOR PO SCH (10:25)
[2019-05-04] MEDS: NORCO-10 PO SCH (10:25)
[2019-05-04] MEDS: NORVASC PO SCH (10:26)
[2019-05-04] MEDS: KLOR-CON PO SCH (10:26)
[2019-05-04] MEDS: NICODERM PATCH TD SCH (10:26)
[2019-05-04] MEDS ORDERED: FLU VACCINE IM ONE (12:28)
[2019-05-04] MEDS ORDERED: PNEUMOVAX 23 IM ONE (12:28)
--- NOTE | 2019-05-05 05:57 | DISCHARGE SUMMARY ---
ADMISSION DATE: 04/28/2019 DISCHARGE DATE: 05/04/2019 ADMISSION DIAGNOSES: 1. Chronic obstructive pulmonary disease with exacerbation. 2. Hypercapnic respiratory failure secondary to #1. 3. Obstructive sleep apnea, and does not use home BiPAP. 4. Tobacco abuse. 5. Hypertension. 6. Hyperlipidemia. 7. Lower extremity edema, cannot rule out new onset congestive heart failure. DISCHARGE DIAGNOSES: 1. Acute hypoxemic hypercapnic respiratory failure secondary to chronic obstructive pulmonary disease exacerbation with obesity, hypoventilation, and obstructive sleep apnea. We will continue BiPAP and make sure it is set up at home. Pulmonary has been consulted, and will follow those recommendations. 2. Acute kidney injury stable and improving. 3. Nephrotoxic medications were held. 4. Tobacco abuse. Cessation discussed at least 3 to 6 minutes. 5. Hypertension, stable. 6. No change. 7. Lower extremity edema, congestive heart failure ruled out. CONSULTATIONS: Dr. Mccabe Pulmonology. PROCEDURES: None. HOSPITAL COURSE: Mr. Donnell Oden is a 49-year-old male with a medical history of hypertension, hyperlipidemia, and obstructive sleep apnea, who does not wear BiPAP, obesity, and GERD. Apparently, he has been taking Lasix because of increased edema in the lower extremities. Echocardiogram here reveals that there is no congestive heart failure, but it is apparent that he has got COPD exacerbation with hypoxemia and hypercapnia. He also admits to having obstructive sleep apnea, but does not wear his BiPAP at night. He is at least a 25+ pack per year smoker, and his CO2 on his ABG was 73. He was highly educated on the importance of stopping smoking. He states that he was not aware he had COPD. He was given Lasix. He had diuresed quite a bit of fluid. There was some vague complaints of substernal chest pain that hurt when he coughed. Chest x-ray was unremarkable. He was transferred to the floor for evaluation and treatment. Pulmonary was consulted. He had an echocardiogram that was negative for any congestive heart failure. He was started on DuoNeb's every 4 hours, Rocephin, and Solu-Medrol. He is started on BiPAP. He was given a nicotine patch. Some of his home medications were started for the hypertension and high cholesterol. He was ruled out for pneumonia by CT of the thorax with contrast. It just showed COPD and some atelectasis. He did develop some acute kidney injury so the lisinopril was stopped, and he was given some IV fluids. The Lasix was also stopped as well. Blood pressure remained stable. Eventually, it was felt that the lower extremity edema is most likely from chronic venous insufficiency and not heart failure. BiPAP was continued throughout the day as well as the nighttime due to the elevated CO2 retention. His acute kidney injury improved. Dr. Mccabe saw the patient, and wanted to arrange for home oxygen therapy, and get a sleep evaluation as an outpatient. He also discussed smoking cessation with the patient. He recommended 90 pounds weight loss over the next 2 years, and also discussed at length with the patient that as the patient planned on living long-term, he had 3 things he had to do. One to be re-evaluated and treat the sleep apnea, 2) discontinue tobacco abuse, and 3) was to lose weight and to wear his oxygen to keep his sats over 90%. It is noted with the acute kidney injury that he was on the WILLIAM inhibitor, but he is also on hydrochlorothiazide. He received IV dye for his CT of the chest. Despite all that, he did agree with fluid hydration. Apparently, during his whole stay, his CO2 continued to remain elevated. The lowest it got was 57. The highest was 75, but the pH remained stable so he may live in this in this area. He does need to use his BiPAP when he is at home. DISCHARGE VITAL SIGNS: Temperature is 98.2 degrees, heart rate 90, respiratory rate 16, blood pressure 120/61, and O2 saturation 97% on 4 L nasal cannula. DISCHARGE LABORATORY DATA: White blood cells 10,000, hemoglobin 12, hematocrit 39, and platelet count 163,000. Last set of ABGs was on 05/02/2019, pH 7.36, pCO2 63, and PO2 was 49, bicarb 30, and saturation was 85% and that was on room air. Sodium 146, potassium 4.4, BUN 22, creatinine 0.9, glucose 100, and calcium 8.2. Urinalysis negative. MICROBIOLOGY: Blood cultures negative. IMAGING: On 04/28/2019, chest x-ray with no evidence of acute disease. On 04/30/2019, chest CT with contrast, COPD, bilateral linear atelectasis, no acute disease. EKG on 04/28 sinus tachycardia rate 103. Echocardiogram on 04/29 with ejection fraction of 65%. Mild LVH. Otherwise, nothing else on that. Another EKG on 05/01/2019, rate is normal sinus rhythm, rate 87, and QTc was 409. DISCHARGE MEDICATIONS: 1. Combivent Respimat inhaler 120/4 g 1 puff inhaled every 4 hours p.r.n. 2. Levaquin 750 mg p.o. daily. 3. Medrol Dosepak 4 mg taper. 4. Norvasc 5 mg p.o. twice daily. 5. Prilosec 40 mg p.o. daily. 6. Potassium chloride 10 mEq p.o. daily. 7. Lipitor 40 mg p.o. daily. 8. [place] 10s 1 tablet p.o. twice daily. 9. Lasix 20 mg p.o. daily. DISCHARGE DIET: Heart healthy. DISCHARGE ACTIVITY: As tolerated. DISCHARGE INSTRUCTIONS: If her condition changes, contact physician and/or return to the emergency department. Changes may include, but are not limited to shortness of breath, increased fatigue, excessive bleeding, unexplained weight loss or gain, unmanageable pain, signs or symptoms of infection. Notify physician for worsening shortness of breath, chest pain, fever and chills, coughing up blood, excessive drowsiness, or altered mental status. PHYSICIAN FOLLOWUP: MD Chris Hyde MD and Chris Sheikh MD. Dr. Mccabe wants you to follow up in 2 to 3 weeks. DISCHARGE INSTRUCTIONS: Take medications as prescribed, specifically inhaler, steroids and antibiotics. DISCHARGE DISPOSITION: Home. Dictated by CONSUELO Caal for Cruz Donovan MD Addendum: Patient seen and examined by myself. Agree with CONSUELO note. It reflects my assessment and plan. Patient is being discharged in stable condition.and will be seen by Pulmonary and Sleep medicine doctor in one to two weeks. cc: CONSUELO Caal MD Chad McElroy, MD James W. Roy, MD James E. Boyle, MD MTDD
== END 2019-05-04 13:34 | disposition home or self-care (01) | DRG 189 ==
LOC: ED 17:05 → 3N 17:06 → SUATTDRO 17:06
PROVIDERS: ATTEND Internal Medicine